=== PATIENT | male | born 1980 | race Caucasian/White ===

== ENCOUNTER 2017-08-06 12:59 | Emergency (ER) | payer MEDICARE ==
[~2017-08-06] VITALS: Ht 172.7 cm; Wt 73.5 kg
[~2017-08-06 12:59] MED LIST: ADVAIR 100-501 EACH; ALBUTEROL SULF8.5 GM; ALPRAZOLAM0.25 MG PO; AMBIEN5 MG PO; BACLOFEN10 MG PO; CYMBALTA30 MG PO; KEPPRA500 MG PO; LOPRESSOR25 MG PO; SYMBICORT 16010.2 GM
[2017-08-06 14:40] VITALS: BP 119/69
== END 2017-08-06 14:45 | disposition home or self-care (01) ==
LOC: FSED 12:59
DX: S01.312A Laceration without foreign body of left ear, initial encounter (principal); W01.190A Fall on same level from slipping, tripping and stumbling with subsequent striking against furniture, initial encounter; Y92.003 Bedroom of unspecified non-institutional (private) residence as the place of occurrence of the external cause; S09.90XA Unspecified injury of head, initial encounter
CPT/HCPCS: 99283

== ENCOUNTER 2017-08-16 16:11 | Emergency (ER) | payer MEDICARE ==
[~2017-08-16] VITALS: Ht 172.7 cm; Wt 73.5 kg
--- OUTSIDE RECORDS SUMMARY | 2017-08-16 16:14 | XMS REPORT | Continuity of Care Document ---
Author Author [facility] Organization [facility] Address [address] [place] [address] Phone Unavailable Care Team Providers Care Boarder Machine Name Role Phone ABDULLAHI DIAS MD PCP Insurance Providers Guarantor Sabino De Leon Address [address] [place] [address] Email [email or web address] Payer Medicare A & B Policy Number [id number] Subscriber's Name Sabino De Leon Relationship 18 Self / Same As Patient Group Number [id number] Group Name RETIRED Effective Date 14 Advance Directives Directive Response Recorded Date/Time Does the patient have an advance directive? No 09/22/15 10:49pm If yes, is advance directive on file with [facility]? No 07/06/08 8:15am If not on file with [facility] will patient provide a copy? No 09/22/15 10:49pm Do you have a Directive to Physician? No 08/06/17 2:17pm Do you have a Medical Power of Senior Clinician? No 08/06/17 2:17pm Do you have an out of hospital Do Not Resuscitate Order? No 08/06/17 2:17pm Do you have any special needs we should be aware of? No 08/06/17 2:17pm Do you have a support person here with you today? Yes 08/06/17 2:17pm Did patient receive Notice of Privacy Practices? Yes 08/06/17 2:17pm Did patient receive patient rights and responsibilities? Yes 08/06/17 2:17pm Problems No problem information available. Medications Current Home Medications Medication Dose Units Route Directions Days Qty Instructions Start Date Albuterol Sulfate (Albuterol Sulfate Hfa) 8.5 Gm Hfa.aer.ad Alprazolam 0.25 Mg Tablet Unknown Dose Oral Three Times A Day Baclofen 10 Mg Tablet 10 Mg Oral Three Times A Day 90 Tab Budesonide/Formoterol Fumarate (Symbicort 160-4.5 Mcg Inhaler) 10.2 Gm Hfa.aer.ad Unknown Dose Duloxetine Hcl (Cymbalta) 30 Mg Capsule.dr 60 Mg Oral Daily 30 Cap Fluticasone/Salmeterol (Advair 100-50 Diskus) 1 Each Disk.w.dev Levetiracetam (Keppra) 500 Mg Tablet Unknown Dose Oral Daily Metoprolol Tartrate (Lopressor) 25 Mg Tab 10 Mg Oral Daily 60 Tab Zolpidem Tartrate (Ambien) 5 Mg Tablet Unknown Dose Oral Bedtime 30 Tab Social History Smoking Status Start Date Stop Date Never Smoker Hospital Discharge Instructions No hospital discharge instruction information available. Plan of Care Discharge Date 08/06/17 2:45pm Disposition HOME, SELF-CARE Condition at Discharge Stable Instructions/Education Provided Suture Care-Adhesive Skin Stri Laceration Forms Provided Work/School Excuse Prescriptions See Medication Section Referrals ABDULLAHI DIAS MD Address: [address] [place] [address] [id number] Additional Instructions/Education KEEP WOUND CLEAN AND DRY RETURN IN 10 DAYS TO HAVE SUTURES REMOVED TAKE ANTIBIOTICS DIRECTED Functional Status No functional status information available. Allergies, Adverse Reactions, Alerts Allergen Type Severity Reaction Status Last Updated No Known Drug Allergies Allergy Unknown Active 09/22/15 Immunizations No immunization information available. Vital Signs Acute Vital Signs Vital Response Date/Time Temperature (Fahrenheit) 97.6 degrees F (97.6 - 99.5) 08/06/2017 2:40pm Pulse Pulse Rate (adult) 82 bpm (60 - 90) 08/06/2017 2:40pm Respiratory Rate 17 bpm (12 - 24) 08/06/2017 2:40pm Blood Pressure 119/69 mm Hg 08/06/2017 2:40pm Height 5 ft 8 in 08/06/2017 1:34pm Weight 162 lb 08/06/2017 1:34pm Body Mass Index 24.6 kg/m^2 08/06/2017 1:34pm Results No relevant diagnostic test, laboratory data and/or discharge summary information available. Procedures No procedure information available. Encounters Encounter Location Arrival/Admit Date Discharge/Depart Date Attending Provider Departed Emergency Room [facility] 08/06/17 12:59pm 08/06 2:45pm RACHEL LYONS MD
[2017-08-16 19:08] VITALS: BP 147/69
== END 2017-08-16 18:28 | disposition home or self-care (01) ==
LOC: FSED 16:11
DX: R33.9 Retention of urine, unspecified (principal); R10.9 Unspecified abdominal pain; N41.1 Chronic prostatitis; Z86.73 Personal history of transient ischemic attack (TIA), and cerebral infarction without residual deficits; Z87.820 Personal history of traumatic brain injury
CPT/HCPCS: 51700; 81003; 99283